=== PATIENT | male | born 1960 | race Caucasian/White ===

== ENCOUNTER 2020-11-20 20:11 | Observation (INO) | payer BC ==
[~2020-11-20] VITALS: Ht 190.5 cm; Wt 87.1 kg
[2020-11-20 22:07] LABS: BASOPHILS % (AUTO) 1.1 % (0.0-5.0); EOSINOPHILS % (AUTO) 5.7 % (0.0-8.0); HEMATOCRIT 41.5 % (42-54); LYMPHOCYTES % (AUTO) 19.1 % (21.0-51.0); MEAN CORPUSCULAR HEMOGLOBIN 30.1 pg (27.0-33.0); MEAN CORPUSCULAR HGB CONC 33.3 g/dL (32.0-36.0); MEAN CORPUSCULAR VOLUME 90.4 fL (79-99); MONOCYTES % (AUTO) 11.2 % (3.0-13.0); NEUTROPHILS % (AUTO) 62.6 % (40.0-77.0); PLATELET COUNT (AUTO) 224 K/uL (130-400); RED BLOOD CELL COUNT(AUTO) 4.59 MIL/uL (4.50-6.20); RED CELL DISTRIBUTION WIDTH 13.2 % (11.0-15.5); WHITE BLOOD COUNT (AUTO) 7.6 K/uL (4.8-10.8)
[2020-11-20 22:12] LABS: POTASSIUM 3.6 mmol/L (3.5-5.1)
[2020-11-20 22:17] LABS: ALBUMIN 3.8 g/dL (3.5-5.0); BILIRUBIN,TOTAL 0.4 mg/dL (0.2-1.0); TOTAL PROTEIN, SERUM 7.1 g/dL (6.0-8.3)
[2020-11-20 22:59] LABS: APPEARANCE,URINE Clear (CLEAR); BILIRUBIN,URINE Negative (NEGATIVE); COLOR,URINE Yellow (YELLOW); GLUCOSE, URINE (UA) Negative (NEGATIVE); KETONES,URINE 40 mg/dL (NEGATIVE); LEUKOCYTE ESTERASE ,URINE Negative (NEGATIVE); NITRATE,URINE Negative (NEGATIVE); OCCULT BLOOD,URINE Negative (NEGATIVE); PH,URINE 5.5 (5.0-8.0); PROTEIN,URINE Negative (NEGATIVE); UROBILINOGEN,URINE 0.2 mg/dL (0.2-1.0)
[2020-11-20] MEDS ORDERED: ONDANSETRON 4MG INJ IV PRN (23:00)
[2020-11-20] MEDS: NITROGLYCERIN 1GM OINT 1 INCH/1GM TD SCH (23:00)
[2020-11-20] MEDS ORDERED: MORPHINE 4 MG SYG IV PRN (23:00)
[2020-11-20] MEDS ORDERED: NITROGLYCERIN 1GM OINT 1 INCH/1GM TD ONE (23:00)
[2020-11-20 23:08] LABS: RBC,URINE 0-1 /HPF (0-1); WBC,URINE 0-1 /HPF (0-1)
[2020-11-20 23:12] LABS: BACTERIA,URINE None Seen /HPF (None Seen); CALCIUM OXALATE CRYSTALS,UR Moderate /LPF (None Seen); SQUAMOUS EPITHELIAL CELL,UR None Seen /HPF (0-2)
[2020-11-21] MEDS ORDERED: CYCLOBENZAPRINE HCL 10 MG TABLET PO ONE
[2020-11-21] MEDS ORDERED: HYDROCODONE/ACETAMINOPHEN 5/325 MG TAB PO ONE
[2020-11-21] MEDS ORDERED: ENOXAPARIN SODIUM 40 MG/0.4 ML SYRINGE SQ ONE (07:21)
[2020-11-21] MEDS ORDERED: ASPIRIN 81 MG EC TAB ONE (07:21)
[2020-11-21] MEDS ORDERED: FAMOTIDINE 20MG TAB ONE (07:21)
[2020-11-21] MEDS: FAMOTIDINE 20MG TAB PO SCH (07:23)
[2020-11-21] MEDS: NITROGLYCERIN 1GM OINT 1 INCH/1GM TD SCH ×3 (07:23→23:33)
[2020-11-21] MEDS: ASPIRIN 81 MG EC TAB PO SCH (07:23)
[2020-11-21] MEDS: ENOXAPARIN SODIUM 40 MG/0.4 ML SYRINGE SQ SCH (07:25)
[2020-11-21 09:20] LABS: CHOLESTEROL 153 mg/dL (<200); HDL CHOLESTEROL 32 mg/dL (29-71); LDL DIRECT 113 mg/dL (0-99); TRIGLYCERIDES 51 mg/dL (30-200)
[2020-11-21 09:21] LABS: HEMOGLOBIN A1C 5.8 % (4.0-6.0)
[2020-11-21] MEDS ORDERED: DIPHENHYDRAMINE HCL 25 MG CAPSULE PO PRN (21:00)
[2020-11-21] MEDS: ACETAMINOPHEN 325 MG TAB PO PRN (21:16)
[2020-11-22] MEDS: ACETAMINOPHEN 325 MG TAB PO PRN (02:06)
[2020-11-22] MEDS: NITROGLYCERIN 1GM OINT 1 INCH/1GM TD SCH (07:00)
[2020-11-22] MEDS ORDERED: FLUT16H NASAL (07:20)
[2020-11-22] MEDS ORDERED: AMOX-429 PO (07:20)
[2020-11-22] MEDS ORDERED: PANT40TA55 PO (07:20)
[2020-11-22] MEDS: ASPIRIN 81 MG EC TAB PO SCH (08:24)
[2020-11-22] MEDS: FAMOTIDINE 20MG TAB PO SCH (08:24)
[2020-11-22] MEDS: ENOXAPARIN SODIUM 40 MG/0.4 ML SYRINGE SQ SCH (08:25)
[2020-11-22] MEDS ORDERED: AMOX/CLAV 875/125MG TAB PO SCH (09:00)
[2020-11-22] MEDS ORDERED: FLUTICASONE PROPIONATE 50MCG/SPRAY 16 GM BOTTLE EN SCH (09:00)
[2020-11-22] MEDS ORDERED: AEC81 PO (11:06)
[2020-11-22 12:21] VITALS: BP 114/78
== END 2020-11-22 14:14 | disposition home or self-care (01) ==
LOC: EDH 20:11 → EDHIP 22:46
PROVIDERS: ADMIT Internal Medicine; ATTEND Internal Medicine
DX: R07.89 Other chest pain (principal); Z20.822 Contact with and (suspected) exposure to COVID-19; Z79.82 Long term (current) use of aspirin
CPT/HCPCS: 36415 ×2; 71045; 80053; 80061; 81001; 82550; 83036; 83690; 84443; 84484 ×5; 85025; 85378; 87635; 93005 ×3; 93306; 93356; 96372 ×2; 99285; G0378 ×38; J1650 ×2; Q0163